=== PATIENT | female | born 1960 ===

== ENCOUNTER 2019-12-10 13:10 | Outpatient (REF) | payer MEDICAID, SELFPAY ==
--- NOTE | 2019-12-10 13:18 | MM_ITS ---
EXAMINATION: MM SCREENING DIGITAL BREAST TOMOSYNTHESIS, BILATERAL CLINICAL INFORMATION: Screening. Asymptomatic. The lifetime risk of breast cancer based on the Tyrer-Cuzick Model is 9%. COMPARISON: Mammography: 12/04/2018, 10/20/2017 TECHNIQUE: Digital breast tomosynthesis is performed in both the craniocaudal and mediolateral oblique views along with computer-aided detection (CAD). Synthesized 2D images are generated from the tomosynthesis. FINDINGS: There are scattered areas of fibroglandular density (ACR BI-RADS breast composition Category b). There are no significant masses, abnormal calcifications, or other abnormalities. There are some regional punctate round calcifications again noted right breast upper outer quadrant. MM/MM tomosynthesis screening BI IMPRESSION: No significant changes from prior studies. ASSESSMENT: BI-RADS 2: Benign RECOMMENDATION: Routine annual mammography screening. This patient's information was entered into a reminder system with a target due date for their next mammogram.
== END 2019-12-10 13:11 | disposition home or self-care (01) ==
LOC: HO.MAMMO 13:10
PROVIDERS: PCP Internal Medicine; Visit Provider Internal Medicine
DX: Z12.31 Encounter for screening mammogram for malignant neoplasm of breast (principal)
CPT/HCPCS: 77063; 77067

== ENCOUNTER 2020-08-07 11:40 | Outpatient (REF) | payer MEDICAID, SELFPAY | END 2020-08-07 11:41 | disposition home or self-care (01) | LOC: HO.XRAY 11:40 | PROVIDERS: PCP Internal Medicine; Visit Provider Internal Medicine | DX: Z13.89 Encounter for screening for other disorder (principal) ==

== ENCOUNTER 2021-04-09 13:55 | Outpatient (REF) | payer MEDICAID, SELFPAY ==
--- NOTE | ~2021-04-09 | MM_ITS ---
EXAMINATION: MM SCREENING DIGITAL BREAST TOMOSYNTHESIS, BILATERAL CLINICAL INFORMATION: Screening. Asymptomatic. The lifetime risk of breast cancer based on the Tyrer-Cuzick Model is 9%. COMPARISON: Mammography: 12/10/2019, 12/04/2018, 10/20/2017 TECHNIQUE: Digital breast tomosynthesis is performed in both the craniocaudal and mediolateral oblique views along with computer-aided detection (CAD). Synthesized 2D images are generated from the tomosynthesis. FINDINGS: There are scattered areas of fibroglandular density (ACR BI-RADS breast composition Category b). Parenchymal pattern is similar to prior exams. There is no developing density or interval mass or architectural abnormality. Punctate calcifications are again noted, on right regional upper outer quadrant. The axilla are stable. The skin contours are smooth. No significant changes. MM/MM tomosynthesis screening BI IMPRESSION: No mammographic evidence of malignancy. ASSESSMENT: BI-RADS 2: Benign RECOMMENDATION: Routine annual mammography screening. This patient's information was entered into a reminder system with a target due date for their next mammogram.
== END 2021-04-09 13:56 | disposition home or self-care (01) ==
LOC: HO.MAMMO 13:55
PROVIDERS: PCP Internal Medicine; Visit Provider Internal Medicine
DX: Z12.31 Encounter for screening mammogram for malignant neoplasm of breast (principal)
CPT/HCPCS: 77063; 77067

== ENCOUNTER 2022-07-03 12:13 | Outpatient (REF) | payer MEDICAID, SELFPAY ==
--- NOTE | ~2022-07-03 | MM_ITS ---
EXAMINATION: MM SCREENING DIGITAL BREAST TOMOSYNTHESIS, BILATERAL CLINICAL INFORMATION: Screening. Asymptomatic. The lifetime risk of breast cancer based on the Tyrer-Cuzick Model is 9%. COMPARISON: Mammography: 04/09/2021, 12/10/2019, 12/04/2018 TECHNIQUE: Digital breast tomosynthesis is performed in both the craniocaudal and mediolateral oblique views along with computer-aided detection (CAD). Synthesized 2D images are generated from the tomosynthesis. FINDINGS: There are scattered areas of fibroglandular density (ACR BI-RADS breast composition Category b). There are no significant masses, abnormal calcifications, or other abnormalities. There are scattered bilateral benign punctate calcifications, regional upper outer right breast similar to prior exams. No developing density or architectural abnormality. The axilla are similar to prior studies. Skin contours are smooth. MM/MM tomosynthesis screening BI IMPRESSION: No mammographic evidence of malignancy. ASSESSMENT: BI-RADS 2: Benign RECOMMENDATION: Routine annual mammography screening. This patient's information was entered into a reminder system with a target due date for their next mammogram.
== END 2022-07-03 12:14 | disposition home or self-care (01) ==
LOC: HO.MAMMO 12:13
PROVIDERS: PCP Internal Medicine; Visit Provider Internal Medicine
DX: Z12.31 Encounter for screening mammogram for malignant neoplasm of breast (principal)
CPT/HCPCS: 77063; 77067

== ENCOUNTER 2023-05-19 15:14 | Outpatient (REF) | payer MEDICAID, SELFPAY ==
[2023-05-20 10:44] LABS: Adenovirus F 40/41 Not Detected (Not Detect.); Astrovirus Not Detected (Not Detect.); Campylobacter Not Detected (Not Detect.); Cryptosporidium Not Detected (Not Detect.); Cyclospora cayetanensis Not Detected (Not Detect.); E. coli EAEC Not Detected (Not Detect.); E. coli EPEC Not Detected (Not Detect.); E. coli ETEC Not Detected (Not Detect.); E. coli STEC Not Detected (Not Detect.); Entamoeba histolytica Not Detected (Not Detect.); Giardia lamblia Not Detected (Not Detect.); Norovirus GI/GII Not Detected (Not Detect.); Plesiomonas shigelloides Not Detected (Not Detect.); Rotavirus A Not Detected (Not Detect.); Salmonella Not Detected (Not Detect.); Sapovirus Not Detected (Not Detect.); Shigella sp./EIEC Not Detected (Not Detect.); Vibrio Not Detected (Not Detect.); Vibrio Cholerae Not Detected (Not Detect.); Yersinia enterocolitica Not Detected (Not Detect.)
== END 2023-05-19 15:15 | disposition home or self-care (01) ==
LOC: HO.CHCLNP 15:14
PROVIDERS: Visit Provider Internal Medicine
DX: R19.7 Diarrhea, unspecified (principal)
CPT/HCPCS: 87329; 87507

== ENCOUNTER → 2023-07-24 14:45 | Outpatient (BNV) | payer MEDICAID, SELFPAY | PROVIDERS: PCP Internal Medicine; Visit Provider Radiology Diagnostic Radiology | DX: Z12.31 Encounter for screening mammogram for malignant neoplasm of breast (principal) | CPT/HCPCS: 77063; 77067 ==

== ENCOUNTER 2023-07-24 14:49 | Outpatient (REF) | payer MEDICAID, SELFPAY | END 2023-07-24 14:50 | disposition home or self-care (01) | LOC: HO.MAMMO 14:49 | PROVIDERS: PCP Internal Medicine; Visit Provider Internal Medicine | DX: Z12.31 Encounter for screening mammogram for malignant neoplasm of breast (principal) | CPT/HCPCS: 77063; 77067 ==

== ENCOUNTER 2023-07-28 11:09 | Outpatient (REF) | payer MEDICAID, SELFPAY ==
[2023-07-28 15:19] LABS: Anion Gap 11 (12-20); Blood Urea Nitrogen 25 mg/dL (9-16); Calcium 10.1 mg/dL (8.4-10.2); Carbon Dioxide 28 mmol/L (22-29); Chloride 108 mmol/L (96-108); Estimated Glomerular Filt Rate 43; Glucose Random 142 mg/dL (60-115); Potassium 4.6 mmol/L (3.3-5.1); Sodium 142 mmol/L (135-145)
== END 2023-07-28 11:10 | disposition home or self-care (01) ==
LOC: HO.CHCLDS 11:09
PROVIDERS: Visit Provider Internal Medicine
DX: I12.9 Hypertensive chronic kidney disease with stage 1 through stage 4 chronic kidney disease, or unspecified chronic kidney disease (principal)
CPT/HCPCS: 36415; 80048

== ENCOUNTER 2023-07-31 12:00 | Outpatient (REF) | payer MEDICAID, SELFPAY ==
--- NOTE | ~2023-07-31 | XR_ITS ---
EXAMINATION: XR LUMBAR SPINE XR HIP, RIGHT CLINICAL INFORMATION: Right hip pain, SI joint pain. COMPARISON: None available. TECHNIQUE: 3 views of the lumbar spine. 2 views of the right hip. FINDINGS: Lumbar Spine: Levoscoliosis of the lumbar spine. Facet arthritis in the lower lumbar spine. Diffuse demineralization. For the purposes of this report, the most inferior well-formed vertebral body will be referred to as L5; however, dedicated imaging of the spine should be obtained to ensure appropriate labeling/numbering of vertebral bodies prior to any intervention/procedure. Multilevel lumbar spondylosis with advanced degenerative changes and loss of disc space height at L5-S1. Right Hip: Mild degenerative changes in the right sacroiliac joint. Right hip alignment is preserved. Mild degenerative changes in the right hip with joint space narrowing and hypertrophic change. XR/XR hip RT min 2V IMPRESSION: 1. Multilevel lumbar spondylosis with advanced degenerative changes and loss of disc space height at L5-S1. 2. Mild degenerative changes in the right hip. 3. Mild degenerative changes in right sacroiliac joint.
--- NOTE | ~2023-07-31 | XR_ITS ---
EXAMINATION: XR LUMBAR SPINE XR HIP, RIGHT CLINICAL INFORMATION: Right hip pain, SI joint pain. COMPARISON: None available. TECHNIQUE: 3 views of the lumbar spine. 2 views of the right hip. FINDINGS: Lumbar Spine: Levoscoliosis of the lumbar spine. Facet arthritis in the lower lumbar spine. Diffuse demineralization. For the purposes of this report, the most inferior well-formed vertebral body will be referred to as L5; however, dedicated imaging of the spine should be obtained to ensure appropriate labeling/numbering of vertebral bodies prior to any intervention/procedure. Multilevel lumbar spondylosis with advanced degenerative changes and loss of disc space height at L5-S1. Right Hip: Mild degenerative changes in the right sacroiliac joint. Right hip alignment is preserved. Mild degenerative changes in the right hip with joint space narrowing and hypertrophic change. XR/XR lumbar spine 2-3V IMPRESSION: 1. Multilevel lumbar spondylosis with advanced degenerative changes and loss of disc space height at L5-S1. 2. Mild degenerative changes in the right hip. 3. Mild degenerative changes in right sacroiliac joint.
== END 2023-07-31 12:01 | disposition home or self-care (01) ==
LOC: HO.XRAY 12:00
PROVIDERS: PCP Internal Medicine; Visit Provider Family Medicine
DX: M25.551 Pain in right hip (principal); G89.29 Other chronic pain; M53.3 Sacrococcygeal disorders, not elsewhere classified
CPT/HCPCS: 72100; 73502

== ENCOUNTER 2023-09-04 08:30 | Outpatient (REF) | payer MEDICAID, SELFPAY | END 2023-09-04 08:31 | disposition home or self-care (01) | LOC: HO.HOSX 08:30 | PROVIDERS: Visit Provider Physician Assistant | DX: Z13.89 Encounter for screening for other disorder (principal) ==

== ENCOUNTER 2023-09-09 19:13 | Outpatient (REF) | payer MEDICAID, SELFPAY ==
[2023-09-11 14:17] LABS: HPV mRNA E6/E7 rflx NOT DETECTED
== END 2023-09-09 19:14 | disposition home or self-care (01) ==
LOC: HO.CHCLNP 19:13
PROVIDERS: Visit Provider Family Medicine
DX: Z12.4 Encounter for screening for malignant neoplasm of cervix (principal)
CPT/HCPCS: 36415; 87624; 88175

== ENCOUNTER 2023-09-22 08:39 | Outpatient (REF) | payer MEDICAID, SELFPAY ==
--- NOTE | ~2023-09-22 | XR_ITS ---
EXAMINATION: XR PELVIS CLINICAL INFORMATION: Hip pain. COMPARISON: Right hip radiographs dated 07/31/2023. TECHNIQUE: AP view of the pelvis. FINDINGS: No fracture. Hip joint spaces are maintained. The femoral heads are smooth. Alignment is anatomic. Sacroiliac joints and pubic symphysis are normal. No abnormal soft tissue calcifications. XR/XR pelvis 1-2V IMPRESSION: Normal pelvis. Electronically signed by: Rg Shaw MD 10/21/2023 08:46 PM EDT
== END 2023-09-22 08:40 | disposition home or self-care (01) ==
LOC: HO.HOSX 08:39
PROVIDERS: Visit Provider Physician Assistant
DX: M25.559 Pain in unspecified hip (principal); M76.891 Other specified enthesopathies of right lower limb, excluding foot; M67.951 Unspecified disorder of synovium and tendon, right thigh
CPT/HCPCS: 72170; 99212

== ENCOUNTER 2023-09-22 12:58 | Outpatient (AMB) | payer MEDICAID, SELFPAY ==
--- NOTE | 2023-09-22 13:09 | A.OFFVIS_ITS ---
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 Patient reports intermittent pain that fluctuates in intensity. Her pain is located at the lateral aspect of hip that radiates into her groin area and down her leg. No previous tx. Denies injury. She does at home exercises. Finds relief with prescribed topical cream. Allergies penicillin G [Bicillin C-R] Allergy (Unknown, Verified 09/23/23 15:13) Unknown penicillin G procaine [Bicillin C-R] Allergy (Unknown, Verified 09/23/23 15:13) Unknown penicillin V Allergy (Unknown, Verified 09/23/23 15:13) Hives Medication List - Last Reconciled 10/06/23 by William Jerome PA-C acetaminophen ER 650 mg PO Q8H PRN canagliflozin (Invokana) 100 mg PO QAM cholecalciferol (vitamin D3) 25 mcg PO DAILY diclofenac sodium 1% 2 grams topical QID PRN insulin glargine (Lantus Solostar U-100 Insulin) 50 units subcut BEDTIME labetalol 400 mg PO BID losartan 100 mg PO QAM repaglinide 1 mg PO TID HPI HPI 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 She states she has intermittent pain that fluctuates in intensity at the lateral aspect of her hip that radiates into her groin area down her leg. She denies any injury and has not had any treatment or physical therapy in the past. She does exercises at home. She finds relief with prescribed topical cream. [facility] Surgical History History of removal of cyst (12/24/17) Social History Patient Tobacco Use Status: Never used Tobacco Current occupational status: unemployed Review of Systems Const All systems reviewed & are unremarkable except as noted in HPI and below Physical Exam Vital Signs: BMI result Body Mass Index 26.7 Extrem Other: Right hip: Normal to inspection. No pain with ROM of the hip. Pain along the gre ater trochanter. No pain with hip flexion or abduction. Negative tenderness along the SI joint, Negative SLR. NVI. Results Reviewed Results Reviewed: Xrays were obtained in the office today and personally reviewed by me of the right hip show mild oa Assessment & Plan Assessment & Plan (1) Tendonitis of right hip flexor: Code(s): M76.891 - Other specified enthesopathies of right lower limb, excluding foot Category: Medical (2) Tendinopathy of right gluteus medius: Code(s): M67.951 - Unspecified disorder of synovium and tendon, right thigh Category: Medical Plan We discussed options which include PT, NSAIDs and injections. The patient will defer on the injection today and proceed with PT and NSAIDs. If symptoms persist, she will contact me for an injection, otherwise, PRN. Orders: Orders XR pelvis 1-2V 09/22/23 M25.559 - Pain in unspecified hip PT Evaluation and Treatment 09/22/23 M76.891 - Other specified enthesopathies of right lower limb, excluding foot, M67.951 - Unspecified disorder of synovium and tendon, right thigh Patient Instructions: Scribed for William Jerome PA-C, by Rene Gonzales medical billing and coding specialist, on 09/22/2023 at 1:00 PM EST.? I, William Jerome PA-C, have personally reviewed and agree with the information entered by the scribe. Coding Level of Care Code New Pt Level 3 (02043) Diagnoses Tendonitis of right hip flexor M76.891 Tendinopathy of right gluteus medius M67.951
[2023-09-22 13:11] VITALS: BMI 26.7
== END 2023-09-22 15:14 | disposition home or self-care (01) ==
PROVIDERS: PCP Internal Medicine; Visit Provider Physician Assistant
DX: M76.891 Other specified enthesopathies of right lower limb, excluding foot (principal); M67.951 Unspecified disorder of synovium and tendon, right thigh
CPT/HCPCS: 99203

== ENCOUNTER 2023-09-23 15:03 | Outpatient (AMB) | payer MEDICAID, SELFPAY ==
--- NOTE | 2023-09-23 15:05 | MHC.OFFVIS ---
Vital Signs 09/23/23 15:15 Height 5 ft 1 in Weight 141 lb BMI 26.6 BP 121/66 Blood Pressure Location Lt brachial Position Sitting Pulse 77 Intake Visit Reasons: Left breast cyst Intake Note: Patient is seen in office for evaluation of a left breast cyst. 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: No Accompanied by: Self / Same As Patient Allergies penicillin G [Bicillin C-R] Allergy (Unknown, Verified 09/23/23 15:13) Unknown penicillin G procaine [Bicillin C-R] Allergy (Unknown, Verified 09/23/23 15:13) Unknown penicillin V Allergy (Unknown, Verified 09/23/23 15:13) Hives Medication List - Last Reconciled 09/23/23 by Rg Rodriguez MD acetaminophen ER 650 mg PO Q8H PRN canagliflozin (Invokana) 100 mg PO QAM cholecalciferol (vitamin D3) 25 mcg PO DAILY diclofenac sodium 1% 2 grams topical QID PRN insulin glargine (Lantus Solostar U-100 Insulin) 50 units subcut BEDTIME labetalol 400 mg PO BID losartan 100 mg PO QAM repaglinide 1 mg PO TID HPI Comments Details: 63-year-old female patient returning to the office for evaluation of a left breast skin cyst. This has been present for several years and occasionally will produce discharge when squeezed. She reports occasional episodes of increased discomfort but generally denies any symptoms. She denies any previous surgery in this location. She is requesting excision of this lesion. Her most recent mammogram performed on 07/24/2023 revealed no mammographic evidence of malignancy (BI-RADS 1 ). [facility] Surgical History History of removal of cyst (12/24/17) Social History Patient Tobacco Use Status: Never used Tobacco Current occupational status: unemployed Review of Systems Const All systems reviewed & are unremarkable except as noted in HPI and below Denies chills, Denies fever(s), Denies headache(s), Denies poor appetite and Denies weakness ENT Denies headache(s) Card Denies chest pain, Denies irregular heart rhythm, Denies palpitations and Denies dyspnea Resp Denies cough, Denies excessive phlegm production and Denies dyspnea GI Denies abdominal pain, Denies bloating, Denies change in bowel habits, Denies constipation, Denies heartburn, Denies diarrhea, Denies nausea and Denies vomiting Denies urinary frequency Musc Denies back pain, Denies muscle weakness and Denies numbness Skin/Breast Denies changing lesions and Denies unusual bruising Neuro Denies headache(s), Denies numbness, Denies paresthesias and Denies weakness Psych Denies anxiety and Denies depression Endo Denies palpitations Og/Lymph Denies lymphadenopathy Physical Exam Const General: cooperative and no acute distress Nutritional Appearance: well nourished Orientation/consciousness: patient oriented x3 Limitations: no limitations HEENT Head: Yes normocephalic and Yes atraumatic Ears: hearing grossly normal bilaterally Chest Other: Left breast, 01:00 o'clock proximally 6 cm above the nipple is a bluish discolored skin lesion suggestive of an epidermal inclusion cyst. No evidence of abscess, nontender to palpation. Chest/axillae images: 1. 1 cm epidermal inclusion cyst left breast 01:00 o'clock Resp Effort & Inspection: normal respiratory effort, no audible wheezes, no cough and no respiratory distress Cardio Jugular venous distension: no JVD GI Inspection: Yes normal to inspection Skin Other: Warm, dry, no rash Neuro General: patient oriented x3 Extrem General: Yes no clubbing, cyanosis or edema Assessment & Plan Assessment & Plan (1) Solitary cyst of left breast: Code(s): N60.02 - Solitary cyst of left breast Category: Medical Plan 63-year-old female patient presenting with a solitary epidermal inclusion cyst of the left breast at the 1 o'clock position. I recommended an excision under local anesthesia as a office based procedure. After discussion of the procedure, risks, and alternatives, she consents to the surgery. Coding Level of Care Code New Pt Level 4 (60407) Diagnoses Solitary cyst of left breast N60.02
[2023-09-23 15:15] VITALS: BP 121/66; PULSE 77; BMI 26.6
== END 2023-09-23 15:32 | disposition home or self-care (01) ==
PROVIDERS: PCP Internal Medicine; Visit Provider Surgery
DX: N60.02 Solitary cyst of left breast (principal)
CPT/HCPCS: 99204

== ENCOUNTER → 2023-09-23 15:03 | Outpatient (BNVA) | payer MEDICAID, SELFPAY | PROVIDERS: PCP Internal Medicine; Visit Provider Surgery | DX: N60.02 Solitary cyst of left breast (principal) | CPT/HCPCS: 99202 ==

== ENCOUNTER 2023-10-20 13:15 | Outpatient (REF) | payer MEDICAID, SELFPAY ==
[2023-10-20 15:00] LABS: Anion Gap 14 (12-20); Blood Urea Nitrogen 23 mg/dL (9-16); Calcium 10.3 mg/dL (8.4-10.2); Carbon Dioxide 24 mmol/L (22-29); Chloride 108 mmol/L (96-108); Estimated Glomerular Filt Rate 54; Glucose Random 106 mg/dL (60-115); Potassium 4.4 mmol/L (3.3-5.1); Sodium 142 mmol/L (135-145)
== END 2023-10-20 13:16 | disposition home or self-care (01) ==
LOC: HO.CHCLDS 13:15
PROVIDERS: Visit Provider Internal Medicine Nephrology
DX: I12.9 Hypertensive chronic kidney disease with stage 1 through stage 4 chronic kidney disease, or unspecified chronic kidney disease (principal); N18.2 Chronic kidney disease, stage 2 (mild)
CPT/HCPCS: 36415; 80048

== ENCOUNTER 2023-11-10 12:49 | Outpatient (REF) | payer MEDICAID, SELFPAY ==
[2023-11-13 02:18] LABS: TS Negative Control Passed; TS Panel A 0; TS Panel B 1; TS Positive Control Passed; TSpotTB Negative (Negative)
== END 2023-11-10 12:50 | disposition home or self-care (01) ==
LOC: HO.CHCLDS 12:49
PROVIDERS: Visit Provider Internal Medicine
DX: Z11.1 Encounter for screening for respiratory tuberculosis (principal); E11.22 Type 2 diabetes mellitus with diabetic chronic kidney disease; N18.32 Chronic kidney disease, stage 3b
CPT/HCPCS: 36415; 86481

== ENCOUNTER 2023-11-13 15:42 | Outpatient (REF) | payer MEDICAID, SELFPAY ==
[2023-11-13 17:23] LABS: MANUAL DIFF FLAG NO
[2023-11-13 17:48] LABS: Basophils Absolute Auto 0.1 X10*3/uL (0.0-0.2); Basophils Percent Auto 0.6 % (0-2); Eosinophils Absolute Auto 0.1 X10*3/uL (0.0-0.4); Eosinophils Percent Auto 0.8 % (0-4); Hematocrit 43.9 % (37.0-47.0); Hemoglobin 14.7 g/dl (12.0-16.0); Imm Gran Abs Auto 0.03 X10*3/uL (0.00-0.03); Imm Gran Pct Auto 0.4 % (0.0-0.4); Lymphocytes Absolute Auto 0.7 X10*3/uL (1.2-4.9); Lymphocytes Percent Auto 9.1 % (20-40); Mean Corpuscular HGB Conc 33.5 g/dl (31.0-35.0); Mean Corpuscular Hemoglobin 30.4 pg (27.0-33.0); Mean Corpuscular Volume 90.9 fL (80.0-98.0); Mean Platelet Volume 11.2 fL (9.4-12.3); Monocytes Absolute Auto 0.5 X10*3/uL (0.1-1.2); Neutrophils Absolute Auto 6.5 x10*3/uL (2.0-8.3); Neutrophils Percent Auto 83.1 % (45-73); Platelet Count 239 X10*3/uL (160-400); Red Blood Count 4.83 X10*6/uL (4.20-5.50); Red Cell Distribution Width 12.2 % (11.0-16.0); White Blood Count 7.8 X10*3/uL (4.8-10.8)
[2023-11-13 17:58] LABS: Alanine Aminotransferase 14 U/L (0-31); Albumin Level 4.7 g/dL (3.5-5.0); Alkaline Phosphatase 53 U/L (39-117); Anion Gap 14 (12-20); Aspartate Amino Transferase 17 U/L (5-31); Bilirubin Total 2.2 mg/dL (0.0-1.0); Blood Urea Nitrogen 34 mg/dL (9-16); Calcium 9.8 mg/dL (8.4-10.2); Carbon Dioxide 23 mmol/L (22-29); Chloride 108 mmol/L (96-108); Estimated Glomerular Filt Rate 42; Glucose Random 150 mg/dL (60-115); Sodium 141 mmol/L (135-145); Total Protein 7.3 g/dL (6.5-8.0)
[2023-11-13 18:13] LABS: TSH reflex Free T4 1.28 uIU/mL (0.32-4.0)
== END 2023-11-13 15:43 | disposition home or self-care (01) ==
LOC: HO.CHCLDS 15:42
PROVIDERS: Visit Provider Family Medicine
DX: R53.83 Other fatigue (principal)
CPT/HCPCS: 36415; 80053; 84443; 85025

== ENCOUNTER 2023-12-11 14:06 | Outpatient (AMB) | payer MEDICAID, SELFPAY ==
--- NOTE | 2023-12-11 14:11 | A.OFFVIS_ITS ---
Vital Signs 12/11/23 14:12 Height 5 ft 1 in Weight 140 lb 14.006 oz BMI 26.6 Pulse 76 Intake Visit Reasons: excision of left breast cyst Intake Note: Patient is seen for office procedure, excision of left breast cyst. Pt c/o: here for removal of breast cyst s/p *NEEDED* Allergies penicillin G [Bicillin C-R] Allergy (Unknown, Verified 09/23/23 15:13) Unknown penicillin G procaine [Bicillin C-R] Allergy (Unknown, Verified 09/23/23 15:13) Unknown penicillin V Allergy (Unknown, Verified 09/23/23 15:13) Hives HPI Comments Details: 63-year-old female patient returning for excision of a left breast skin lesion. [facility] Surgical History History of removal of cyst (12/24/17) Social History Patient Tobacco Use Status: Never used Tobacco Current occupational status: unemployed Review of Systems Const All systems reviewed & are unremarkable except as noted in HPI and below Office Procedures Excision Details: Preoperative diagnosis: Left breast epidermal inclusion cyst Postoperative diagnosis: Same Procedure: Excision of left breast epidermal inclusion cyst Surgeon: Rg Rodriguez MD Speech Language Pathology Assistant: None Anesthesia: Local lidocaine 1% with epinephrine Indications for procedure: 63-year-old female patient presenting with a palpable mass located in the skin of the left breast at the 1 o'clock position measuring approximately 1 cm in diameter. Lesion occasionally will produce a thick white discharge although lately no discharge has been expressed. Operative findings: Epidermal inclusion cyst left breast Specimen: Epidermal inclusion cyst left breast Estimated blood loss: Less than 1 mL Complications: None Procedure details: Patient was placed in the procedure room in a supine position. The site of surgery was confirmed by the patient in the left breast 1 o'clock position. After assuring informed consent, the skin was prepped with Betadine and draped in a sterile fashion. Local anesthesia was then infiltrated circumferentially around the lesion. An elliptical incision oriented transversely was then created with a 15 blade. This was then carried out through subcutaneous tissue and around the cyst wall. The lesion was passed off the table and sent to pathology for further examination. Skin was then closed using interrupted 3-0 nylon sutures. A sterile dressings consisting of a 2 x 2 gauze and Tegaderm were then applied. The patient tolerated the procedure well. She was discharged to home in stable condition. [id number]/arms/legs 0.6-1cm Procedure code (CPT) selection complete Assessment & Plan Assessment & Plan (1) Solitary cyst of left breast: Code(s): N60.02 - Solitary cyst of left breast Category: Medical Plan Patient underwent excision of a left breast epidermal inclusion cyst. She tolerated the procedure well and will return in 1 week for suture removal. Orders: Orders Surgical Today N60.02 - Solitary cyst of left breast Coding Level of Care Code Procedure Only Diagnoses Solitary cyst of left breast N60.02 CPT Codes Trunk/Arms/Legs - CPT: 16411-[id number]/arms/legs 0.6-1cm ([id number])
[2023-12-11 14:12] VITALS: PULSE 76; BMI 26.6
== END 2023-12-11 14:40 | disposition home or self-care (01) ==
LOC: HO.HGS 14:07
PROVIDERS: PCP Internal Medicine; Visit Provider Surgery
DX: L72.0 Epidermal cyst (principal)
CPT/HCPCS: 11402

== ENCOUNTER 2023-12-11 14:06 | Outpatient (REF) | payer MEDICAID, SELFPAY | END 2023-12-11 14:07 | disposition home or self-care (01) | LOC: HO.LNP 14:06 | PROVIDERS: PCP Internal Medicine; Visit Provider Surgery | DX: N60.02 Solitary cyst of left breast (principal); L72.0 Epidermal cyst | CPT/HCPCS: 11402; 88304 ==

== ENCOUNTER 2023-12-18 14:24 | Outpatient (AMB) | payer MEDICAID, SELFPAY ==
--- NOTE | 2023-12-18 14:27 | A.OFFVIS_ITS ---
Vital Signs 3 12/18/23 14:33 Height 5 ft 1 in Weight 140 lb 14.006 oz BMI 26.6 BP 120/62 Blood Pressure Location Lt brachial Position Sitting Intake Visit Reasons: s/p excision of left breast cyst Intake Note: Patient is seen in office for one week follow up visit, post excision of left breast cyst. 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 Her most recent mammogram performed on 07/24/2023 revealed no mammographic evidence of malignancy (BI-RADS 1 ). She tolerated the procedure well returns today for wound check and suture removal. Pathology revealed a benign epidermal cyst. [facility] Surgical History History of removal of cyst (12/24/17) Social History Patient Tobacco Use Status: Never used Tobacco Current occupational status: unemployed Physical Exam Const General: no acute distress Nutritional Appearance: well nourished Orientation/consciousness: patient oriented x3 Chest Other: Incision in the left breast: Chest/axillae images: 2 1. Incision left breast upper outer quadrant Resp Effort & Inspection: normal respiratory effort GI Inspection: Yes normal to inspection Neuro General: patient oriented x3 Assessment & Plan Assessment & Plan (1) Solitary cyst of left breast: Code(s): N60.02 - Solitary cyst of left breast Category: Medical Plan 63-year-old female patient status post excision of a benign epidermal cyst of the left breast. She tolerated the procedure well the wounds are healing nicely. She should follow up as needed. Coding Level of Care Code Global (72697) Diagnoses Solitary cyst of left breast N60.02
[2023-12-18 14:33] VITALS: BP 120/62; BMI 26.6
== END 2023-12-18 14:42 | disposition home or self-care (01) ==
LOC: HO.HGS 14:25
PROVIDERS: PCP Internal Medicine; Visit Provider Surgery
DX: N60.02 Solitary cyst of left breast (principal)
CPT/HCPCS: 99024

== ENCOUNTER → 2023-12-18 14:24 | Outpatient (BNVA) | payer MEDICAID, SELFPAY | PROVIDERS: PCP Internal Medicine; Visit Provider Surgery | DX: Z09 Encounter for follow-up examination after completed treatment for conditions other than malignant neoplasm (principal); Z87.2 Personal history of diseases of the skin and subcutaneous tissue; Z98.890 Other specified postprocedural states | CPT/HCPCS: 99212 ==

== ENCOUNTER 2024-08-02 14:59 | Outpatient (REF) | payer MEDICAID, SELFPAY ==
--- NOTE | ~2024-08-02 | MM_ITS ---
EXAMINATION: MM SCREENING DIGITAL BREAST TOMOSYNTHESIS, BILATERAL CLINICAL INFORMATION: Screening. Asymptomatic. COMPARISON: Mammography: Comparison is made with available priors TECHNIQUE: Digital breast mammography with tomosynthesis is performed in both the craniocaudal and mediolateral oblique views along with computer-aided detection (CAD). FINDINGS: The breasts are heterogeneously dense, which may obscure small masses (ACR BI-RADS breast composition Category c). There are no significant masses, abnormal calcifications, or other abnormalities. MM/MM tomosynthesis screening BI IMPRESSION: No mammographic evidence of malignancy. ASSESSMENT: BI-RADS BI-RADS 1 - Negative RECOMMENDATION: Routine annual mammography screening. 1 year F/U This examination should not preclude the clinical evaluation of a suspicious palpable abnormality. This patient's information was entered into a reminder system with a target due date for their next mammogram. Electronically signed by: Lyn Patton DO 08/06/2024 03:06 PM EDT
--- OUTSIDE RECORDS SUMMARY | 2024-08-02 16:32 | XMS_ITS | Encounter Summary ---
Author Organization [employer] Address [address] [place] [address] [place] [address] Care Team Providers Care Underlay Stitcher Name Role Phone Fred Pisano MD Primary Care Provider [phone] Encounter Details Date Type Department Care Team (Late Contact Info) Description 10/29/2023 Orders Only [facility] [address], [place] [id number] Fred Pisano MD [address], [place] [phone] Type 2 diabetes mellitus with stage 3b chronic kidney disease, without long-term current use of insulin ([facility]) (Primary Dx) Social History Tobacco Use Types Packs/Day Years Used Date Smoking Tobacco: Never Smokeless Tobacco: Never Comments No Sex and Gender Information Value Date Recorded Sex Assigned at Female 12/10/2021 10:21 AM EDT Legal Sex Female 10:21 AM EDT Gender Identity Female 12/10/2021 10:21 AM EDT Sexual Orientation Straight 12/10/2021 10 :21 AM EDT documented as of this encounter Plan of Treatment Upcoming Encounters Date Type Department Care Team (Late st Contact Info) Description 09/09/2024 2:30 PM EDT Office Visit [facility] [address], [place] [phone] Fred Pisano MD [address], [place] [phone] documented as of this encounter Procedures Procedure Name Priority Date/Time Associated Diagnosis Comments T-SPOT(R).TB Routine 11/10/2023 12:49 PM EDT Type 2 diabetes mellitus with stage 3b chronic kidney disease, without long-term current use of insulin ([facility]) documented in this encounter Results * T-SPOT??.TB (11/10/2023 12:49 PM EDT) T Spot TB Negative Negative [facility] Comment:A negative test resu lt does not exclude the possibilityof exposure to or infection with Mycobacteriumtuberculosis (M. tuberculosis). Patients with recentexposure to TB infected individuals exhibiting anegative T-SPOT.TB result should be considered forretesting within 6 weeks or if other relevant clinicalsymptoms indicate. Results from T-SPOT.TB testing mustbe used in conjunction with each individual'sepidemiological history, current medical status,and results of other diagnostic evaluations.The T-SPOT.TB test is qualitative and results arereported as positive, borderline, or negative, giventhat the test controls perform as expected. In linewith the Centers for Disease Control and Prevention's2010 recommendation to report quantitative measurementsalongside the qualitative result, the laboratoryprovides spot counts for informational purposes only.The T-SPOT.TB test should not be interpreted as aquantitative test. TS PANEL A 0 [facility] TS PANEL B 1 [facility] Negative Control Passed [facility] Positive Control Passed [facility] Comment:For additional infor hannah, please refer tohttp://education.[employer]/faq/VZF826(This link is being provided for informational/educational purposes only.)THIS TEST WAS PERFORMED AT:[employer] [id number] [place] [address]FZXKVXRSCAR BARNES MD,PHD 11/10/2023 12:4 9 PM EDT 11/10/2023 2:18 PM EDT us Fred Pisano MD LAB BLOOD ORDERABLES Final Result [facility] [address] [place] [address] [phone] documented in this encounter Visit Diagnoses Diagnosis Type 2 diabetes mellitus with stage 3b chronic kidney disease, without long-term current use of insulin ([facility])- Primary documented in this encounter Care Teams Underlay Stitcher Relationship Specialty Start Date End Date Fred Pisano MD [address] [place] [id number] PCP - General Internal Medicine 02/10/18 documented as of this encounter
== END 2024-08-02 15:00 | disposition home or self-care (01) ==
LOC: HO.MAMMO 14:59
PROVIDERS: PCP Internal Medicine; Visit Provider Internal Medicine
DX: Z12.31 Encounter for screening mammogram for malignant neoplasm of breast (principal)
CPT/HCPCS: 77063; 77067

== ENCOUNTER → 2024-08-02 15:00 | Outpatient (BNV) | payer MEDICAID, SELFPAY | PROVIDERS: PCP Internal Medicine; Visit Provider Internal Medicine | DX: Z12.31 Encounter for screening mammogram for malignant neoplasm of breast (principal) | CPT/HCPCS: 77063; 77067 ==